=== PATIENT | male | born 1985 | race Caucasian/White ===

== ENCOUNTER → 2021-01-07 07:57 | Outpatient (CLI) | payer OTHER, SELFPAY ==
[2021-01-07 10:16] LABS: Cholesterol 130 mg/dL (200); Glucose 84 mg/dL (74-106); High Density Lipoprotein 45 mg/dL; Triglycerides 69 mg/dL; Very Low Density Lipoprotein 14 mg/dL (5-40)
== END ==
PROVIDERS: PCP Family Medicine; Referring Provider Family Medicine; Visit Provider Family Medicine
DX: E66.9 Obesity, unspecified (principal); Z83.3 Family history of diabetes mellitus
CPT/HCPCS: 36415; 80061; 82947